=== PATIENT | female | born 1945 | race Caucasian/White ===

== ENCOUNTER 2017-04-26 15:12 | Emergency (ER) | payer MEDICARE ==
[2017-04-26] MEDS ORDERED: APRESOLINE 20 MG/ML INJ IV ONE (15:29)
[2017-04-26] MEDS ORDERED: Sodium Chloride 0.9% 1000 ML 1,000 ML IV SCH (15:30)
[2017-04-26 15:43] LABS: Bilirubin NEGATIVE (NEGATIVE); COMPLETE URINE MICROSCOPIC? YES; Collection Type VOID; Glucose NEGATIVE (NEGATIVE); Leukocyte Esterase 1+ (NEGATIVE)
[2017-04-26 15:45] LABS: BASOPHIL % 0.3 % (0.0-0.4); Eosinophil % 3.1 % (0.00-5.0); Granulocytes % 49.5 % (36.0-66.0); Lymphocytes % 37.3 % (24.0-44.0); Mean Cell Volume 100.5 fl (78-100); Mean Platelet Volume 11.3 fl (6-9.5); Monocytes % 9.8 % (0.0-12.0); Platelet Count 191 K/mm3 (150-450); Red Cell Distribution Width 14.8 % (11.5-14.0); White Blood Count 7.7 K/mm3 (4.0-10.5)
[2017-04-26 15:50] LABS: Mean Corpuscular Hemoglobin 35.7 pg (26-32)
[2017-04-26] MEDS ORDERED: APRESOLINE 20 MG/ML INJ ONE (15:50)
[2017-04-26] MEDS ORDERED: Sodium Chloride 0.9% 1000 ML 1,000 ML ONE (15:50)
--- NOTE | 2017-04-26 15:55 | ERPHSYRPT ---
- History of Present Illness Time Seen by Provider: 04/26/17 15:40 Source: patient Exam Limitations: clinical condition Patient Subjective Stated Complaint: sleeping more lately and just doesn't feel good. states b/p up at home. symptoms for two days. also states she feels deyhdrated Triage Nursing Assessment: ambulated to room. skin w/d, color normal. resp easy. Physician History: PATIENT WITH HISTORY OF HYPERTENSION, CORONARY ARTERY DISEASE COMPLAINS OF ELEVATE BLOOD PRESSURE THIS AFTERNOON. STATES SHE DOES NOT FEEL WELL. DENIES CHEST PAIN, DYSPNEA, NAUSES, EMESIS, Timing/Duration: today Activities at Onset: none Quality: other (DENIES CHEST PAIN, PRESSUSRE) Severity of Pain-Max: none Severity of Pain-Current: none Nitro Today/Relief: no nitro taken today Aspirin Treatment Today: no aspirin today Prior Chest Pain/Cardiac Workup: cardiac cath (CORONARY ARTERY BYPASS GRAFT) Allergies/Adverse Reactions: codeine [Codeine] Adverse Reaction (Verified 04/26/17 15:28) felt high Home Medications: Aspirin 81 mg PO DAILY 08/21/14 [History] Clopidogrel Bisulfate 75 mg [PLAVIX 75 MG Tablet] 75 mg DAILY PRN [History] Metoprolol Succinate 50 mg [Toprol Xl 50 MG] 50 mg BID 08/21/14 [History] Rosuvastatin Calcium [Crestor] 10 mg DAILY 08/21/14 [History] Acyclovir [Zovirax] 1,000 mg PO TID 04/26/17 [History] Losartan Potassium [Cozaar] 100 mg PO HS 04/26/17 [History] Meloxicam 7.5 mg PO DAILY 04/26/17 [History] Hx Tetanus, Diphtheria Vaccination/Date Given: No Hx Influenza Vaccination/Date Given: No Hx Pneumococcal Vaccination/Date Given: No - Review of Systems Constitutional: No Fever, No Chills Eyes: No Symptoms Ears, Nose, & Throat: No Symptoms Respiratory: No Symptoms, No Cough, No Dyspnea Cardiac: No Symptoms, No Chest Pain, No Edema, No Syncope Abdominal/Gastrointestinal: No Symptoms, No Abdominal Pain, No Nausea, No Vomiting, No Diarrhea Genitourinary Symptoms: No Symptoms, No Dysuria Musculoskeletal: No Symptoms, No Back Pain, No Neck Pain Skin: No Symptoms, No Rash Neurological: No Symptoms, No Dizziness, No Focal Weakness, No Sensory Changes Psychological: No Symptoms Endocrine: No Symptoms All Other Systems: Reviewed and Negative - Past Medical History Pertinent Past Medical History: Yes Neurological History: No Pertinent History ENT History: No Pertinent History Cardiac History: Coronary Artery Disease, High Cholesterol, Hypertension, Myocardial Infarction ([place]), Other Respiratory History: Other Endocrine Medical History: No Pertinent History Musculoskeletal History: Degenerative Disk Disease, Osteoarthritis, Other GI Medical History: No Pertinent History History: No Pertinent History Psycho-Social History: No Pertinent History Female Reproductive Disorders: No Pertinent History Other Medical History: sees. dr. dorcas de la vega for heart. history of sinus headache in the past last one was 4 years ago - Past Surgical History Past Surgical History: Yes Neuro Surgical History: No Pertinent History Cardiac: CABG Respiratory: No Pertinent History Gastrointestinal: Cholecystectomy Musculoskeletal: No Pertinent History Female Surgical History: Hysterectomy Other Surgical History: 2 vessle CABG IN 2012 - Social History Smoking Status: Former smoker Exposure to second hand smoke: No Drug Use: none Patient Lives Alone: Yes Significant Family History: heart disease, hypertension - Female History Hx Now: No - Nursing Vital Signs Nursing Vital Signs: Initial Vital Signs Temperature 97.6 F Temperature Source Oral Pulse Rate 82 Respiratory Rate 16 Blood Pressure [Right Arm] 162/84 Pain Intensity 0 - Physical Exam General Appearance: no apparent distress, alert Eye Exam: PERRL/EOMI, eyes nml inspection Ears, Nose, Throat Exam: normal ENT inspection, moist mucous membranes Neck Exam: normal inspection, non-tender, supple Respiratory Exam: normal breath sounds, lungs clear, No respiratory distress Cardiovascular Exam: regular rate/rhythm, normal heart sounds, No edema Gastrointestinal/Abdomen Exam: soft, normal bowel sounds, other (NONTENDER), No tenderness, No mass Back Exam: normal inspection, No CVA tenderness, No vertebral tenderness Extremity Exam: normal inspection, normal range of motion Neurologic Exam: alert, oriented x 3, cooperative, normal mood/affect, nml cerebellar function, sensation nml, No motor deficits Skin Exam: normal color, warm, dry Lymphatic Exam: No adenopathy SpO2 Interpretation: normal SpO2: 99 Oxygen Delivery: Room Air - Course EKG Interpreted by Me: RATE, Sinus Rhythm, NORMAL AXIS, Non-specific ST Changes (rate of 69) - Radiology Exams Chest X-ray Interpretation: Interpreted by me (COPD, LEFT BASILAR PLERUAL EFFUSION) Ordered Tests: Active Orders 24 hr Category Date Time Status Dairy Equipment Installer STAT Care 04/26/17 15:29 Active EKG-ER Only STAT Care 04/26/17 15:29 Active IV Insertion STAT Care 04/26/17 15:29 Active CHEST 1 VIEW (PORTABLE) Stat Exams 04/26/17 15:29 Completed BLOOD CULTURE Stat Lab 04/26/17 15:30 Received BMP Stat Lab 04/26/17 15:30 Completed CBC W DIFF Stat Lab 04/26/17 15:30 Completed CULTURE,URINE Stat Lab 04/26/17 15:35 Received MAGNESIUM Stat Lab 04/26/17 15:30 Completed TROPONIN Q3H Lab 04/26/17 15:30 Completed TROPONIN Q3H Lab 04/26/17 18:30 Ordered TROPONIN Q3H Lab 04/26/17 21:30 Ordered TROPONIN Q3H Lab 04/27/17 00:30 Ordered TROPONIN Q3H Lab 04/27/17 03:30 Ordered UA W/ MICROSCOPIC Stat Lab 04/26/17 15:35 Completed Medication Summary Generic Name Dose Route Start Last Admin Trade Name Freq PRN Reason Stop Dose Admin Sodium Chloride 1,000 mls @ 500 mls/hr 04/26/17 15:58 04/26/17 16:08 Sodium Chloride 0.9% 1000 Ml IV 04/26/17 17:57 500 mls/hr .Q2H STA Administration Discontinued Medications Generic Name Dose Route Start Last Admin Trade Name Freq PRN Reason Stop Dose Admin Clonidine 0.1 mg 04/26/17 16:19 04/26/17 16:24 Catapres 0.1 Mg PO 04/26/17 16:20 0.1 mg STAT ONE Administration Clonidine Confirm 04/26/17 16:24 Catapres 0.1 Mg Administered 04/26/17 16:25 Dose 0.1 mg .ROUTE .STK-MED ONE Hydralazine HCl 10 mg 04/26/17 15:29 04/26/17 15:51 Apresoline 20 Mg/Ml Inj IV 04/26/17 15:30 10 mg STAT ONE Administration Hydralazine HCl Confirm 04/26/17 15:50 Apresoline 20 Mg/Ml Inj Administered 04/26/17 15:51 Dose 20 mg .ROUTE .STK-MED ONE Sodium Chloride 1,000 mls @ 50 mls/hr 04/26/17 15:30 04/26/17 15:51 Sodium Chloride 0.9% 1000 Ml IV 05/26/17 15:29 50 mls/hr .Q20H JOHNNY Administration Sodium Chloride Confirm 04/26/17 15:50 Sodium Chloride 0.9% 1000 Ml Administered 04/26/17 15:51 Dose 1,000 mls @ ud .ROUTE .STK-MED ONE Ceftriaxone Sodium/Dextrose 1 g in 50 mls @ 100 mls/hr 04/26/17 16:10 16:15 Rocephin 1 Gm-D5w 50 Ml Bag IV 04/26/17 16:39 100 mls/hr STAT ONE Administration Ceftriaxone Sodium/Dextrose Confirm 04/26/17 16:14 Rocephin 1 Gm-D5w 50 Ml Bag Administered 04/26/17 16:15 Dose 1 g in 50 mls @ ud IV .STK-MED ONE Lab/Rad Data: Laboratory Result Diagrams 04/26/17 15:30 04/26/17 15:30 Laboratory Results 04/26/17 04/26/17 04/26/17 Range/Units 15:35 15:30 15:30 WBC (4.0-10.5) K/mm3 RBC (4.1-5.4) M/mm3 Hgb (12.0-16.0) gm/dl Hct (35-47) % MCV (78-100) fl MCH (26-32) pg MCHC (32-36) g/dl RDW (11.5-14.0) % Plt Count (150-450) K/mm3 MPV (6-9.5) fl Gran % (36.0-66.0) % Lymphocytes % (24.0-44.0) % Monocytes % (0.0-12.0) % Eosinophils % (0.00-5.0) % Basophils % (0.0-0.4) % Basophils # (0-0.4) Sodium 141 (136-145) mEq/L Potassium 3.6 (3.5-5.1) mEq/L Chloride 106 (98-107) mEq/L Carbon Dioxide 24.4 (21-32) mEq/L Anion Gap 14.3 (5-15) MEQ/L BUN 28 H (9-20) mg/dL Creatinine 0.82 (0.55-1.30) mg/dl Estimated GFR > 60 ML/MIN Glucose 96 (70-110) MG/DL Calcium 9.5 (8.5-10.1) mg/dL Magnesium 2.0 (1.8-2.4) mg/dL Troponin I < 0.017 (0.000-0.056) ng/ml Ur Collection Type VOID Urine Color YELLOW (YELLOW) Urine Appearance CLEAR (CLEAR) Urine pH 5.0 (5-6) Ur Specific [place] 1.010 (1.005-1.025) Urine Protein NEGATIVE (Negative) Urine Ketones NEGATIVE (NEGATIVE) Urine Blood 5-10 (0-5) Rachid/ul Urine Nitrite NEGATIVE (NEGATIVE) Urine Bilirubin NEGATIVE (NEGATIVE) Urine Urobilinogen NORMAL (0-1) mg/dL Ur Leukocyte Esterase 1+ (NEGATIVE) Urine Microscopic RBC 0-2 (0-2) /HPF Urine Microscopic WBC 15-25 (0-5) /HPF Ur Epithelial Cells FEW (FEW) /HPF Urine Bacteria FEW (NEGATIVE) /HPF Urine Yeast FEW (NEGATIVE) /HPF Urine Glucose NEGATIVE (NEGATIVE) mg/dL Specimen Received 04/26/17 1535 04/26/17 Range/Units 15:30 WBC 7.7 (4.0-10.5) K/mm3 RBC 4.00 L (4.1-5.4) M/mm3 Hgb 14.3 (12.0-16.0) gm/dl Hct 40.2 (35-47) % MCV 100.5 H (78-100) fl MCH 35.7 H (26-32) pg MCHC 35.6 (32-36) g/dl RDW 14.8 H (11.5-14.0) % Plt Count 191 (150-450) K/mm3 MPV 11.3 H (6-9.5) fl Gran % 49.5 (36.0-66.0) % Lymphocytes % 37.3 (24.0-44.0) % Monocytes % 9.8 (0.0-12.0) % Eosinophils % 3.1 (0.00-5.0) % Basophils % 0.3 (0.0-0.4) % Basophils # 0.02 (0-0.4) Sodium (136-145) mEq/L Potassium (3.5-5.1) mEq/L Chloride (98-107) mEq/L Carbon Dioxide (21-32) mEq/L Anion Gap (5-15) MEQ/L BUN (9-20) mg/dL Creatinine (0.55-1.30) mg/dl Estimated GFR ML/MIN Glucose (70-110) MG/DL Calcium (8.5-10.1) mg/dL Magnesium (1.8-2.4) mg/dL Troponin I (0.000-0.056) ng/ml Ur Collection Type Urine Color (YELLOW) Urine Appearance (CLEAR) Urine pH (5-6) Ur Specific [place] (1.005-1.025) Urine Protein (Negative) Urine Ketones (NEGATIVE) Urine Blood (0-5) Rachid/ul Urine Nitrite (NEGATIVE) Urine Bilirubin (NEGATIVE) Urine Urobilinogen (0-1) mg/dL Ur Leukocyte Esterase (NEGATIVE) Urine Microscopic RBC (0-2) /HPF Urine Microscopic WBC (0-5) /HPF Ur Epithelial Cells (FEW) /HPF Urine Bacteria (NEGATIVE) /HPF Urine Yeast (NEGATIVE) /HPF Urine Glucose (NEGATIVE) mg/dL Specimen Received - Progress Progress Note: 04/26/17 16:12 PATIENT HYDRATED IV NORMAL SALINE 500ML/HR, HYDRALAZINE 10MG IV, AFTER 2 SETS OF BLOOD CULTURE AND URINE CULTURE ROCEPHIN 1GM IVPB GIVEN PATIENT GIVEN CATAPRES 0.1MG ORALLY 04/26/17 17:11 BLOOD PRESSURE IMPROVED TO BP 162/84 Blood Culture(s) Obtained: Yes Antibiotics given: Yes Discussed with Dr.: Other (CONSULT PATIENT'S MAIN ENTREE COOK AND CASHIER DR DE LA VEGA AT 1625 FOR FOLLOWUP APPOINTMENT IN 1 WEEK AND TO INCREASE METOPROLOL TO 75MG TWICE DAILY.) Counseled pt/family regarding: lab results, diagnosis, need for follow-up, rad results - Departure Time of Disposition: 17:20 Departure Disposition: Home Clinical Impression: HYPERTENSION, URINARY TRACT INFECTION Condition: Stable Critical Care Time: No Referrals: BOO PARISI MD [Primary Care Provider] - Additional Instructions: ANTIBIOTIC MACROBID 100MG TWICE DAILY FOR 10 DAYS. INCREASE METOPROLOL TO 75MG TWICE DAILY. FOLLOWUP WITH YOUR MAIN ENTREE COOK AND CASHIER DR DE LA VEGA EARLY NEXT WEEK. CHECK YOUR BLOOD PRESSURE FREQUENTLY. Prescriptions: Metoprolol Tartrate 25 mg [Lopressor 25MG Tab] 25 mg PO BID #60 tab Nitrofurantoin Macro 100 mg [Macrobid 100MG Capsule] 100 mg PO BID #20 capsule
[2017-04-26] MEDS ORDERED: Sodium Chloride 0.9% 1000 ML 1,000 ML IV STA (15:58)
[2017-04-26 16:05] LABS: Bacteria FEW /HPF (NEGATIVE); Epithelial Cells FEW /HPF (FEW); WBC 15-25 /HPF (0-5); Yeast FEW /HPF (NEGATIVE)
[2017-04-26] MEDS ORDERED: ROCEPHIN 1 Gm-D5w 50 ml Bag** 1 G/50 ML IVPB IV ONE ×2 (16:10→16:14)
[2017-04-26 16:13] LABS: ANION GAP 14.3 MEQ/L (5-15); BLOOD UREA NITROGEN 28 mg/dL (9-20); CHLORIDE 106 mEq/L (98-107); Carbon Dioxide 24.4 mEq/L (21-32); Glucose 96 MG/DL (70-110); Potassium 3.6 mEq/L (3.5-5.1); SODIUM 141 mEq/L (136-145)
[2017-04-26] MEDS ORDERED: Catapres 0.1 MG PO ONE (16:19)
[2017-04-26] MEDS ORDERED: Catapres 0.1 MG ONE (16:24)
--- NOTE | 2017-04-26 16:31 | XRAY ---
Indication: Dyspnea. Comparison: October 15, 2009. Portable chest demonstrates new left retrocardiac radiolucent opacity favoring large hiatal hernia with adjacent atelectasis. Right lung clear. Heart is not enlarged and demonstrates interval CABG surgery. Bony thorax intact. Impression: Suspect large hiatal hernia with adjacent atelectasis. No acute cardiopulmonary abnormalities.
[2017-04-26 17:31] VITALS: BP 150/67; PULSE 70; O2SAT 97
== END 2017-04-26 17:31 | disposition home or self-care (01) ==
LOC: ED 15:12
DX: I10 Essential (primary) hypertension (principal); N39.0 Urinary tract infection, site not specified; I25.2 Old myocardial infarction; Z95.1 Presence of aortocoronary bypass graft; I25.10 Atherosclerotic heart disease of native coronary artery without angina pectoris; E78.00 Pure hypercholesterolemia, unspecified
CPT/HCPCS: 36000; 36415; 71010; 80048; 81000; 83735; 84484; 85025; 87040; 87077; 87086; 93005; 93041; 96360; 96361; 96365; 96374; 99285; J0360; J0696; A9270-GY

== ENCOUNTER 2017-04-28 06:15 | Emergency (ER) | payer MEDICARE ==
[2017-04-28 06:27] VITALS: O2SAT 98
--- NOTE | 2017-04-28 06:42 | ERPHSYRPT ---
<VEE CRUM - Last Filed: 04/28/17 07:10> - History of Present Illness Time Seen by Provider: 04/28/17 06:28 Historian: patient Exam Limitations: no limitations Patient Subjective Stated Complaint: pt states she was awakened this morning with chest pain. states she became nauseated. Triage Nursing Assessment: pt pink, warm, dry. lung sounds clear and equal. heart tones wnl. Physician History: ABOUT 100 MINUTES AGO PT HAD A 2 MINUTE EPISODE OF SHARP NON-RADIATING MID ANTERIOR CHEST PAIN AND NAUSEA WHICH DID NOT RETURN. PT DENIES FEVER, VOMITING, ABDOMINAL PAIN. Allergies/Adverse Reactions: codeine [Codeine] Adverse Reaction (Verified 04/28/17 06:27) felt high Home Medications: Aspirin 81 mg PO DAILY 08/21/14 [History] Clopidogrel Bisulfate 75 mg [PLAVIX 75 MG Tablet] 75 mg DAILY PRN [History] Metoprolol Succinate 50 mg [Toprol Xl 50 MG] 50 mg BID 08/21/14 [History] Rosuvastatin Calcium [Crestor] 10 mg DAILY 08/21/14 [History] Acyclovir [Zovirax] 1,000 mg PO TID 04/26/17 [History] Losartan Potassium [Cozaar] 100 mg PO HS 04/26/17 [History] Meloxicam 7.5 mg PO DAILY 04/26/17 [History] Hx Tetanus, Diphtheria Vaccination/Date Given: Yes (unknown) Hx Influenza Vaccination/Date Given: No Hx Pneumococcal Vaccination/Date Given: No Immunizations Up to Date: Yes - Review of Systems Constitutional: No Fever Cardiac: Chest Pain Abdominal/Gastrointestinal: Nausea, No Abdominal Pain, No Vomiting Endocrine: No Excessive Sweating All Other Systems: Reviewed and Negative - Past Medical History Pertinent Past Medical History: Yes Neurological History: No Pertinent History ENT History: No Pertinent History Cardiac History: Coronary Artery Disease, High Cholesterol, Hypertension, Myocardial Infarction ([place]), Other Respiratory History: Other Endocrine Medical History: No Pertinent History Musculoskeletal History: Degenerative Disk Disease, Osteoarthritis, Other GI Medical History: No Pertinent History History: No Pertinent History Psycho-Social History: No Pertinent History Female Reproductive Disorders: No Pertinent History Other Medical History: sees. dr. dorcas de la vega for heart. history of sinus headache in the past last one was 4 years ago - Past Surgical History Past Surgical History: Yes Neuro Surgical History: No Pertinent History Cardiac: CABG Respiratory: No Pertinent History Gastrointestinal: Cholecystectomy Musculoskeletal: No Pertinent History Female Surgical History: Hysterectomy Other Surgical History: 2 vessle CABG IN 2012 - Social History Smoking Status: Former smoker Exposure to second hand smoke: No Drug Use: none Patient Lives Alone: No Significant Family History: heart disease, hypertension - Female History Hx Now: No - Nursing Vital Signs Nursing Vital Signs: Initial Vital Signs Temperature 99.1 F Temperature Source Oral Pulse Rate [Bilateral Radial] 60 Pulse Rate 61 Respiratory Rate 18 Blood Pressure [Right Arm] 186/88 Pain Intensity 0 - Physical Exam General Appearance: alert Eye Exam: PERRL/EOMI Ears, Nose, Throat Exam: TMs normal, pharynx normal, moist mucous membranes Neck Exam: normal inspection Respiratory Exam: lungs clear Cardiovascular Exam: normal heart sounds Gastrointestinal/Abdomen Exam: soft, normal bowel sounds Back Exam: normal range of motion Extremity Exam: normal inspection Neurologic Exam: alert, cooperative Skin Exam: warm, dry SpO2 Interpretation: normal SpO2: 98 Oxygen Delivery: Room Air - Course Nursing assessment & vital signs reviewed: Yes EKG Interpreted by Me: RATE (62), Sinus Rhythm, NORMAL AXIS, NORMAL INTERVALS Ordered Tests: Active Orders 24 hr Category Date Time Status Kiln Firer Helper STAT Care 04/28/17 06:28 Active EKG-ER Only STAT Care 04/28/17 06:28 Active IV Insertion STAT Care 04/28/17 06:28 Active Pulse Oximetry (ED) STAT Care 04/28/17 06:36 Active CHEST 1 VIEW (PORTABLE) Stat Exams 04/28/17 06:36 Taken AMYLASE Stat Lab 04/28/17 06:43 Completed CBC W DIFF Stat Lab 04/28/17 06:43 Completed CMP Stat Lab 04/28/17 06:43 Completed LIPASE Stat Lab 04/28/17 06:43 Completed MAGNESIUM Stat Lab 04/28/17 06:43 Completed TROPONIN Q3H Lab 04/28/17 06:43 Completed TROPONIN Q3H Lab 04/28/17 09:45 Ordered TROPONIN Q3H Lab 04/28/17 12:45 Ordered TROPONIN Q3H Lab 04/28/17 15:45 Ordered TROPONIN Q3H Lab 04/28/17 18:45 Ordered UA W/RFX UR CULTURE Stat Lab 04/28/17 06:45 Completed Medication Summary Discontinued Medications Generic Name Dose Route Start Last Admin Trade Name New PRN Reason Stop Dose Admin Aspirin 324 mg 04/28/17 07:08 04/28/17 07:18 Baby Aspirin 81 Mg Chew PO 04/28/17 07:09 324 mg STAT ONE Administration Aspirin Confirm 04/28/17 07:16 Baby Aspirin 81 Mg Chew Administered 04/28/17 07:17 Dose 324 mg .ROUTE .STK-MED ONE Lab/Rad Data: Laboratory Result Diagrams 04/28/17 06:43 04/28/17 06:43 Laboratory Results 04/28/17 04/28/17 04/28/17 Range/Units 06:45 06:43 06:43 WBC (4.0-10.5) K/mm3 RBC (4.1-5.4) M/mm3 Hgb (12.0-16.0) gm/dl Hct (35-47) % MCV (78-100) fl MCH (26-32) pg MCHC (32-36) g/dl RDW (11.5-14.0) % Plt Count (150-450) K/mm3 MPV (6-9.5) fl Gran % (36.0-66.0) % Lymphocytes % (24.0-44.0) % Monocytes % (0.0-12.0) % Eosinophils % (0.00-5.0) % Basophils % (0.0-0.4) % Basophils # (0-0.4) Sodium 142 (136-145) mEq/L Potassium 3.7 (3.5-5.1) mEq/L Chloride 105 (98-107) mEq/L Carbon Dioxide 25.8 (21-32) mEq/L Anion Gap 14.4 (5-15) MEQ/L BUN 24 H (9-20) mg/dL Creatinine 0.88 (0.55-1.30) mg/dl Estimated GFR > 60 ML/MIN Glucose 145 H (70-110) MG/DL Calcium 9.4 (8.5-10.1) mg/dL Magnesium 1.9 (1.8-2.4) mg/dL Total Bilirubin 0.70 (0.2-1.0) mg/dL AST 21 (15-37) U/L ALT 21 (12-78) U/L Alkaline Phosphatase 79 (46-116) U/L Troponin I 0.034 (0.000-0.056) ng/ml Serum Total Protein 7.5 (6.4-8.2) gm/dL Albumin 4.2 (3.4-5.0) g/dL Amylase 32 (25-115) U/L Lipase 90 (73-393) U/L Ur Collection Type VOID Urine Color YELLOW (YELLOW) Urine Appearance CLEAR (CLEAR) Urine pH 5.0 (5-6) Ur Specific [place] 1.015 (1.005-1.025) Urine Protein NEGATIVE (Negative) Urine Ketones TRACE (NEGATIVE) Urine Blood NEGATIVE (0-5) Rachid/ul Urine Nitrite NEGATIVE (NEGATIVE) Urine Bilirubin NEGATIVE (NEGATIVE) Urine Urobilinogen NORMAL (0-1) mg/dL Ur Leukocyte Esterase NEGATIVE (NEGATIVE) Urine Glucose TRACE (NEGATIVE) mg/dL Specimen Received 04/28/17 0645 04/28/17 Range/Units 06:43 WBC 6.6 (4.0-10.5) K/mm3 RBC 4.14 (4.1-5.4) M/mm3 Hgb 14.7 (12.0-16.0) gm/dl Hct 41.3 (35-47) % MCV 99.8 (78-100) fl MCH 35.5 H (26-32) pg MCHC 35.6 (32-36) g/dl RDW 14.7 H (11.5-14.0) % Plt Count 206 (150-450) K/mm3 MPV 11.8 H (6-9.5) fl Gran % 58.6 (36.0-66.0) % Lymphocytes % 29.4 (24.0-44.0) % Monocytes % 8.7 (0.0-12.0) % Eosinophils % 3.0 (0.00-5.0) % Basophils % 0.3 (0.0-0.4) % Basophils # 0.02 (0-0.4) Sodium (136-145) mEq/L Potassium (3.5-5.1) mEq/L Chloride (98-107) mEq/L Carbon Dioxide (21-32) mEq/L Anion Gap (5-15) MEQ/L BUN (9-20) mg/dL Creatinine (0.55-1.30) mg/dl Estimated GFR ML/MIN Glucose (70-110) MG/DL Calcium (8.5-10.1) mg/dL Magnesium (1.8-2.4) mg/dL Total Bilirubin (0.2-1.0) mg/dL AST (15-37) U/L ALT (12-78) U/L Alkaline Phosphatase (46-116) U/L Troponin I (0.000-0.056) ng/ml Serum Total Protein (6.4-8.2) gm/dL Albumin (3.4-5.0) g/dL Amylase (25-115) U/L Lipase (73-393) U/L Ur Collection Type Urine Color (YELLOW) Urine Appearance (CLEAR) Urine pH (5-6) Ur Specific [place] (1.005-1.025) Urine Protein (Negative) Urine Ketones (NEGATIVE) Urine Blood (0-5) Rachid/ul Urine Nitrite (NEGATIVE) Urine Bilirubin (NEGATIVE) Urine Urobilinogen (0-1) mg/dL Ur Leukocyte Esterase (NEGATIVE) Urine Glucose (NEGATIVE) mg/dL Specimen Received - Departure Clinical Impression: Chest pain of uncertain etiology Condition: Stable Instructions: Atypical Chest Pain Additional Instructions: You had an episode of brief chest pain that completely resolved after 2 minutes. All of her laboratory results including the EKG were normal. At this time it should go home and take it easy this weekend. Per our discussion, follow-up with your surveillance technician, Dr. De La Vega, on Sunday. If you have another episode of chest pain that lasts for prolonged period of time, that is greater than 2 minutes, please return to the ER. <VEE DOS SANTOS - Last Filed: 04/28/17 07:52> - History of Present Illness Timing/Duration: today, resolved prior to arrival, sudden, other (lasted 2 min) Activities at Onset: rest Quality: sharpness Location: substernal Chest Pain Radiation: no radiation Severity of Pain-Max: moderate Severity of Pain-Current: none Modifying Factors: Improves With: nothing Associated Symptoms: nausea Prior Chest Pain/Cardiac Workup: heart attack Nitro Today/Relief: no nitro taken today Aspirin Treatment Today: no aspirin today - Review of Systems Eyes: No Symptoms Ears, Nose, & Throat: No Symptoms Respiratory: No Cough, No Dyspnea Genitourinary Symptoms: No Dysuria Musculoskeletal: No Back Pain, No Neck Pain Skin: No Rash Neurological: No Dizziness, No Focal Weakness, No Sensory Changes Psychological: No Symptoms Hematologic/Lymphatic: No Symptoms Immunological/Allergic: No Symptoms - Progress Progress: unchanged Air Movement: good Blood Culture(s) Obtained: No Antibiotics given: No Counseled pt/family regarding: lab results, diagnosis, need for follow-up, rad results - Departure Time of Disposition: 07:47 Departure Disposition: Home Critical Care Time: No
[2017-04-28 06:58] LABS: BASOPHIL % 0.3 % (0.0-0.4); Granulocytes % 58.6 % (36.0-66.0); Lymphocytes % 29.4 % (24.0-44.0); Mean Cell Volume 99.8 fl (78-100); Mean Corpuscular Hemoglobin 35.5 pg (26-32); Mean Platelet Volume 11.8 fl (6-9.5); Monocytes % 8.7 % (0.0-12.0); Platelet Count 206 K/mm3 (150-450); Red Blood Count 4.14 M/mm3 (4.1-5.4); Red Cell Distribution Width 14.7 % (11.5-14.0); White Blood Count 6.6 K/mm3 (4.0-10.5)
[2017-04-28 07:01] LABS: Collection Type VOID; Glucose TRACE mg/dL (NEGATIVE); Leukocyte Esterase NEGATIVE (NEGATIVE)
[2017-04-28 07:02] LABS: ADD URINE CULTURE? NO (NO); Bilirubin NEGATIVE (NEGATIVE); Blood NEGATIVE Ery/ul (0-5); COMPLETE URINE MICROSCOPIC? NO
[2017-04-28] MEDS ORDERED: BABY ASPIRIN 81 MG CHEW PO ONE (07:08)
[2017-04-28 07:15] LABS: ALBUMIN 4.2 g/dL (3.4-5.0); ALKALINE PHOSPHATASE 79 U/L (46-116); ANION GAP 14.4 MEQ/L (5-15); BLOOD UREA NITROGEN 24 mg/dL (9-20); CHLORIDE 105 mEq/L (98-107); Carbon Dioxide 25.8 mEq/L (21-32); Glucose 145 MG/DL (70-110); LIPASE 90 U/L (73-393); MAGNESIUM 1.9 mg/dL (1.8-2.4); Potassium 3.7 mEq/L (3.5-5.1); SGOT/AST 21 U/L (15-37); SGPT/ALT 21 U/L (12-78); SODIUM 142 mEq/L (136-145); Total Protein 7.5 gm/dL (6.4-8.2)
[2017-04-28] MEDS ORDERED: BABY ASPIRIN 81 MG CHEW ONE (07:16)
--- NOTE | 2017-04-28 08:22 | XRAY ---
Indication: Chest pain. Comparison: April 26, 2017. Portable chest unchanged again demonstrating large hiatal hernia with adjacent atelectasis. Right lung remains clear. Heart is not enlarged again demonstrating CABG surgery. No new/acute findings.
[2017-04-28 11:21] VITALS: BP 106/69; PULSE 59
== END 2017-04-28 11:21 | disposition home or self-care (01) ==
LOC: ED 06:15
DX: R07.9 Chest pain, unspecified (principal); I25.2 Old myocardial infarction; I25.10 Atherosclerotic heart disease of native coronary artery without angina pectoris; Z95.1 Presence of aortocoronary bypass graft; E78.00 Pure hypercholesterolemia, unspecified; I10 Essential (primary) hypertension
CPT/HCPCS: 36000; 36415; 71010; 80053; 81002; 82150; 83690; 83735; 84484; 85025; 93005; 93041; 99284; A9270-GY